=== PATIENT | male | born 1995 | race African-American/Black ===

== ENCOUNTER 2020-05-07 11:09 | Emergency (ER) | payer SELFPAY ==
[~2020-05-07] VITALS: Ht 185.4 cm; Wt 73.5 kg
[2020-05-07] MEDS ORDERED: CEPHALEXIN500 M1 PO (13:33)
== END 2020-05-07 13:48 | disposition home or self-care (01) ==
LOC: ED 11:09
DX: S61.213A Laceration without foreign body of left middle finger without damage to nail, initial encounter (principal); F17.200 Nicotine dependence, unspecified, uncomplicated; X58.XXXA Exposure to other specified factors, initial encounter; Y93.89 Activity, other specified; Y92.89 Other specified places as the place of occurrence of the external cause; Y99.8 Other external cause status